=== PATIENT | male | born 1975 | race Caucasian/White ===

== ENCOUNTER 2017-12-18 16:08 | Inpatient (IN) | payer BC ==
[~2017-12-18] VITALS: Ht 167.6 cm; Wt 81.0 kg
[2017-12-18] MEDS ORDERED: IOPAMIDOL-370 75 ML VIAL IV ONE (16:34)
[2017-12-18] MEDS ORDERED: VANCOMYCIN 1GM+NS 250ML 250 ML IV ONE (16:41)
[2017-12-18] MEDS ORDERED: MEROPENEM 1 GM VIAL ONE (16:41)
[2017-12-18] MEDS ORDERED: SODIUM CHLORIDE 0.9% 1000ML 3,000 ML IV ONE (16:41)
[2017-12-18 16:44] LABS: HEMATOCRIT 42.7 % (42-54); MEAN CORPUSCULAR HEMOGLOBIN 29.3 pg (27.0-33.0); MEAN CORPUSCULAR HGB CONC 34.6 g/dL (32.0-36.0); MEAN CORPUSCULAR VOLUME 84.8 fL (79-99); PLATELET COUNT (AUTO) 265 K/uL (130-400); RED BLOOD CELL COUNT(AUTO) 5.04 MIL/uL (4.50-6.20); RED CELL DISTRIBUTION WIDTH 13.7 % (11.0-15.5)
[2017-12-18 16:58] LABS: APPEARANCE,URINE Clear (CLEAR); BILIRUBIN,URINE Negative (NEGATIVE); COLOR,URINE Dark Yellow (YELLOW); GLUCOSE, URINE (UA) Negative (NEGATIVE); KETONES,URINE Negative (NEGATIVE); LEUKOCYTE ESTERASE ,URINE Negative (NEGATIVE); NITRATE,URINE Negative (NEGATIVE); OCCULT BLOOD,URINE Negative (NEGATIVE); PH,URINE 5.5 (5.0-8.0); PROTEIN,URINE Trace (NEGATIVE)
[2017-12-18 16:58] LABS: CARBON DIOXIDE 27 mmol/L (21-32); CHLORIDE 100 mmol/L (101-111); CREATININE 1.1 mg/dL (0.5-1.5); GLOMERULAR FILTR. RATE CALC 77 mL/min (>60); GLUCOSE,RANDOM 107 mg/dL (70-105); POTASSIUM 3.7 mmol/L (3.5-5.1); SODIUM SERUM 137 mmol/L (136-145); UREA NITROGEN, BLOOD 10 mg/dL (7-18)
[2017-12-18 17:02] LABS: WHITE BLOOD COUNT (AUTO) 32.1 K/uL (4.8-10.8)
[2017-12-18] MEDS ORDERED: ONDANSETRON HCL 4 MG/2 ML VIAL ONE (17:05)
[2017-12-18] MEDS ORDERED: MORPHINE SULFATE 4 MG/1ML SYG ONE ×2 (17:05→21:12)
[2017-12-18] MEDS ORDERED: ACETAMINOPHEN 325 MG TAB ONE (17:05)
[2017-12-18 17:11] LABS: ALANINE AMINOTRANSFERASE 44 U/L (12-78); ALBUMIN 3.4 g/dL (3.5-5.0); ASPARTATE AMINOTRANSFERASE 17 U/L (10-37); BILIRUBIN,TOTAL 0.8 mg/dL (0.2-1.0); CREATINE KINASE MB < 0.5 ng/mL (0.5-3.6); TOTAL PROTEIN, SERUM 7.5 g/dL (6.0-8.3)
[2017-12-18 17:50] LABS: BACTERIA,URINE None Seen /HPF (None Seen); MUCUS,URINE Moderate LPF (None Seen); RBC,URINE None Seen /HPF (0-1); SQUAMOUS EPITHELIAL CELL,UR 0-2 /LPF (0-2); WBC,URINE None Seen /HPF (0-1)
[2017-12-18 18:33] LABS: BAND NEUTROPHILS % (MANUAL) 3 % (0-2); LYMPHOCYTES % (MANUAL) 8 % (22-44); MAN.DIFF COMMENT-IMPRESSION MANUAL DIFFERENTIAL; MONOCYTES % (MANUAL) 6 % (2-9); REACTIVE LYMPHOCYTES 5 % (0-0); SEGMENTED NEUTROPHILS % 78 % (40-70)
[2017-12-18 18:36] LABS: PLATELET MORPHOLOGY COMMENT LARGE PLTS PRESENT
[2017-12-18] MEDS ORDERED: ONDANSETRON HCL 4 MG/2 ML VIAL IV PRN (23:45)
[2017-12-18] MEDS ORDERED: ACETAMINOPHEN 325 MG TAB PO PRN ×2 (23:45)
[2017-12-18] MEDS ORDERED: MEROPENEM 500MG+NS 50ML 50 ML IV SCH (23:45)
[2017-12-19] MEDS ORDERED: SODIUM CHLORIDE 0.9% 1000ML 1,000 ML IV ONE (01:38)
[2017-12-19] MEDS ORDERED: ACETAMINOPHEN 325 MG TAB ONE ×2 (01:56→04:41)
[2017-12-19] MEDS ORDERED: MEROPENEM 500 MG VIAL ONE (02:55)
[2017-12-19] MEDS ORDERED: VANCOMYCIN 1GM+NS 250ML 250 ML IV ONE (04:34)
[2017-12-19 05:56] LABS: BASOPHILS % (AUTO) 0.3 % (0.0-5.0); EOSINOPHILS % (AUTO) 0.1 % (0.0-8.0); MEAN CORPUSCULAR HEMOGLOBIN 29.8 pg (27.0-33.0); MEAN CORPUSCULAR HGB CONC 34.4 g/dL (32.0-36.0); MEAN CORPUSCULAR VOLUME 86.5 fL (79-99); MONOCYTES % (AUTO) 11.2 % (3.0-13.0); NEUTROPHILS % (AUTO) 81.4 % (40.0-77.0); PLATELET COUNT (AUTO) 231 K/uL (130-400); RED BLOOD CELL COUNT(AUTO) 4.51 MIL/uL (4.50-6.20); RED CELL DISTRIBUTION WIDTH 13.6 % (11.0-15.5); WHITE BLOOD COUNT (AUTO) 27.8 K/uL (4.8-10.8)
[2017-12-19 06:08] LABS: ALBUMIN 2.7 g/dL (3.5-5.0); BILIRUBIN,TOTAL 1.7 mg/dL (0.2-1.0); CREATININE 0.9 mg/dL (0.5-1.5); MAGNESIUM 1.6 mg/dL (1.80-2.40); PHOSPHORUS 2.7 mg/dL (2.5-4.9); POTASSIUM 3.9 mmol/L (3.5-5.1); TOTAL PROTEIN, SERUM 6.1 g/dL (6.0-8.3)
[2017-12-19] MEDS: MEROPENEM 500 MG VIAL IVP SCH ×3 (06:30→21:17)
[2017-12-19] MEDS: VANCOMYCIN 1GM+NS 250ML 250 ML IV SCH ×2 (09:00→21:17)
[2017-12-19 09:34] VITALS: BP 115/83
[2017-12-19] MEDS: SODIUM CHLORIDE 0.9% 1000ML 1,000 ML IV SCH ×3 (09:39→21:17)
[2017-12-19] MEDS: ENOXAPARIN SODIUM 40 MG/0.4 ML SYRINGE SQ SCH (10:52)
[2017-12-19] MEDS: PANTOPRAZOLE SODIUM 40 MG TABLET.DR PO SCH (10:53)
[2017-12-19 11:36] VITALS: BP 144/66
[2017-12-19] MEDS: TRAMADOL HCL 50 MG TABLET PO PRN ×2 (15:49→21:28)
[2017-12-19 16:00] VITALS: BP 123/55
[2017-12-19] MEDS ORDERED: ONDANSETRON HCL 4 MG/2 ML VIAL IVP PRN (17:00)
[2017-12-19 20:00] VITALS: BP 115/63
[2017-12-19 23:44] VITALS: BP 120/77
[2017-12-20 04:00] VITALS: BP 131/66
[2017-12-20] MEDS: MEROPENEM 500 MG VIAL IVP SCH ×3 (05:37→20:36)
[2017-12-20] MEDS: SODIUM CHLORIDE 0.9% 1000ML 1,000 ML IV SCH ×2 (05:37→15:39)
[2017-12-20 07:00] VITALS: BP 123/63
[2017-12-20] MEDS: VANCOMYCIN 1GM+NS 250ML 250 ML IV SCH ×2 (10:17→20:36)
[2017-12-20] MEDS: PANTOPRAZOLE SODIUM 40 MG TABLET.DR PO SCH (10:18)
[2017-12-20] MEDS: ENOXAPARIN SODIUM 40 MG/0.4 ML SYRINGE SQ SCH (10:18)
[2017-12-20] MEDS: TRAMADOL HCL 50 MG TABLET PO PRN (10:18)
[2017-12-20 11:00] VITALS: BP 126/69
[2017-12-20] MEDS ORDERED: KETOROLAC TROMETHAMINE 30MG/ML IV ONE (15:00)
[2017-12-20] MEDS ORDERED: KETOROLAC TROMETHAMINE 15MG/ML ONE (15:04)
[2017-12-20] MEDS ORDERED: LIDOCAINE HCL 1% 20 ML VIAL INJ SCH (15:15)
[2017-12-20 16:00] VITALS: BP 139/70
[2017-12-20 20:00] VITALS: BP 150/83
[2017-12-20] MEDS: MORPHINE SULFATE 2 MG/ML 1ML SYG IVP PRN (20:41)
[2017-12-21] VITALS: BP 130/65
[2017-12-21] MEDS: MORPHINE SULFATE 2 MG/ML 1ML SYG IVP PRN ×3 (03:53→15:55)
[2017-12-21 04:00] VITALS: BP 131/76
[2017-12-21 05:32] LABS: MEAN CORPUSCULAR HEMOGLOBIN 30.1 pg (27.0-33.0); MEAN CORPUSCULAR HGB CONC 35.1 g/dL (32.0-36.0); MEAN CORPUSCULAR VOLUME 85.6 fL (79-99); PLATELET COUNT (AUTO) 247 K/uL (130-400); RED CELL DISTRIBUTION WIDTH 13.5 % (11.0-15.5); WHITE BLOOD COUNT (AUTO) 19.1 K/uL (4.8-10.8)
[2017-12-21 05:45] LABS: ALBUMIN 2.5 g/dL (3.5-5.0); BILIRUBIN,DIRECT 0.1 mg/dL (0.0-0.3); BILIRUBIN,TOTAL 0.6 mg/dL (0.2-1.0); MAGNESIUM 1.8 mg/dL (1.80-2.40); POTASSIUM 3.3 mmol/L (3.5-5.1); TOTAL PROTEIN, SERUM 6.2 g/dL (6.0-8.3)
[2017-12-21 06:16] LABS: BAND NEUTROPHILS % (MANUAL) 6 % (0-2); LYMPHOCYTES % (MANUAL) 11 % (22-44); MAN.DIFF COMMENT-IMPRESSION MANUAL DIFFERENTIAL; MONOCYTES % (MANUAL) 8 % (2-9); SEGMENTED NEUTROPHILS % 75 % (40-70)
[2017-12-21 06:17] LABS: PLATELET MORPHOLOGY COMMENT ADEQUATE
[2017-12-21] MEDS: MEROPENEM 500 MG VIAL IVP SCH ×3 (06:32→21:48)
[2017-12-21 08:00] VITALS: BP 135/71
[2017-12-21] MEDS: ENOXAPARIN SODIUM 40 MG/0.4 ML SYRINGE SQ SCH (10:04)
[2017-12-21] MEDS: VANCOMYCIN 1GM+NS 250ML 250 ML IV SCH ×2 (10:09→21:05)
[2017-12-21] MEDS: PANTOPRAZOLE SODIUM 40 MG TABLET.DR PO SCH (10:09)
[2017-12-21] MEDS: TRAMADOL HCL 50 MG TABLET PO PRN (10:14)
[2017-12-21] MEDS: SODIUM CHLORIDE 0.9% 1000ML 1,000 ML IV SCH ×3 (10:30→21:39)
[2017-12-21] MEDS ORDERED: HYDROCODONE/ACETAMINOPHEN 5/325 MG TAB PO PRN (11:15)
[2017-12-21 12:00] VITALS: BP 120/73
[2017-12-21] MEDS ORDERED: COMPOUND IV REFRIGERATED 1 EACH IVSOLN MISC PRN (13:00)
[2017-12-21] MEDS: VANCOMYCIN 1.5 GM in SODIUM CHLORIDE 0.9% 250 ML IV SCH ×2 (13:28→21:37)
[2017-12-21 16:00] VITALS: BP 134/6
[2017-12-21] MEDS ORDERED: LIDOCAINE HCL-MPF 1% 2ML VIAL IVP PRN (16:30)
[2017-12-21] MEDS ORDERED: POTASSIUM CHLORIDE 10% ELIXIR 20 MEQ/15 ML UDCUP PO PRN (16:30)
[2017-12-21] MEDS ORDERED: POTASSIUM CHLORIDE 20MEQ/100ML 100 ML IV PRN (16:30)
[2017-12-21] MEDS: POTASSIUM CHLORIDE 20 MEQ ERTAB PO PRN (17:45)
[2017-12-21 20:00] VITALS: BP 147/70
[2017-12-21] MEDS ORDERED: SODIUM CHLORIDE 0.9% 250 ML IV ONE (20:45)
[2017-12-21] MEDS ORDERED: VANCOMYCIN HCL 1 GM VIAL IV ONE (20:45)
[2017-12-21] MEDS: KETOROLAC TROMETHAMINE 30MG/ML IM SCH (21:05)
[2017-12-22] VITALS (25 sets, daily range): BP systolic 82–164; BP diastolic 37–89
[2017-12-22] MEDS: VANCOMYCIN 1.5 GM in SODIUM CHLORIDE 0.9% 250 ML IV SCH ×3 (05:39→22:00)
[2017-12-22] MEDS: MEROPENEM 500 MG VIAL IVP SCH ×3 (05:39→22:10)
[2017-12-22] MEDS: KETOROLAC TROMETHAMINE 30MG/ML IM SCH ×4 (05:41→20:51)
[2017-12-22] MEDS: SODIUM CHLORIDE 0.9% 1000ML 1,000 ML IV SCH ×3 (07:39→20:51)
[2017-12-22] MEDS: PANTOPRAZOLE SODIUM 40 MG TABLET.DR PO SCH (09:00)
[2017-12-22] MEDS: ENOXAPARIN SODIUM 40 MG/0.4 ML SYRINGE SQ SCH (09:57)
[2017-12-22] MEDS ORDERED: PROPOFOL 10 MG/ML 20ML VIAL IV ONE (10:43)
[2017-12-22] MEDS ORDERED: LIDOCAINE PF 2% 5ML ABBOJECT ONE (10:43)
[2017-12-22] MEDS ORDERED: MIDAZOLAM HCL 1 MG/ML 2ML VIAL ONE (10:43)
[2017-12-22] MEDS ORDERED: FENTANYL CITRATE PF 50 MCG/1 ML 2ML VIAL ONE (10:43)
[2017-12-22] MEDS ORDERED: BACITRACIN 50,000 UNIT VIAL ONE (10:56)
[2017-12-22] MEDS: POTASSIUM CHLORIDE 20 MEQ ERTAB PO PRN (12:33)
[2017-12-23] MEDS: KETOROLAC TROMETHAMINE 30MG/ML IM SCH ×3 (02:22→14:00)
[2017-12-23 04:00] VITALS: BP 124/64
[2017-12-23 05:46] LABS: HEMATOCRIT 36.6 % (42-54); MEAN CORPUSCULAR HEMOGLOBIN 29.8 pg (27.0-33.0); MEAN CORPUSCULAR HGB CONC 34.9 g/dL (32.0-36.0); MEAN CORPUSCULAR VOLUME 85.5 fL (79-99); PLATELET COUNT (AUTO) 294 K/uL (130-400); RED BLOOD CELL COUNT(AUTO) 4.28 MIL/uL (4.50-6.20); RED CELL DISTRIBUTION WIDTH 13.8 % (11.0-15.5); WHITE BLOOD COUNT (AUTO) 11.7 K/uL (4.8-10.8)
[2017-12-23 05:51] LABS: ALBUMIN 2.4 g/dL (3.5-5.0); BILIRUBIN,TOTAL 0.3 mg/dL (0.2-1.0); CREATININE 0.9 mg/dL (0.5-1.5); MAGNESIUM 1.8 mg/dL (1.80-2.40); POTASSIUM 4.5 mmol/L (3.5-5.1); TOTAL PROTEIN, SERUM 6.1 g/dL (6.0-8.3)
[2017-12-23] MEDS: MEROPENEM 500 MG VIAL IVP SCH (06:23)
[2017-12-23 07:00] VITALS: BP 151/94
[2017-12-23] MEDS: VANCOMYCIN 1.75 GM in SODIUM CHLORIDE 0.9% 250 ML IV SCH ×3 (07:32→21:36)
[2017-12-23] MEDS: PANTOPRAZOLE SODIUM 40 MG TABLET.DR PO SCH (09:52)
[2017-12-23] MEDS: MORPHINE SULFATE 2 MG/ML 1ML SYG IVP PRN ×2 (09:53→21:37)
[2017-12-23] MEDS: ENOXAPARIN SODIUM 40 MG/0.4 ML SYRINGE SQ SCH (09:53)
[2017-12-23 11:00] VITALS: BP 154/86
[2017-12-23 16:00] VITALS: BP_SYST 154; BP_SYST 168; BP_DIAS 85; BP_DIAS 93
[2017-12-23 19:49] VITALS: BP 148/76
[2017-12-23] MEDS: SODIUM CHLORIDE 0.9% 1000ML 1,000 ML IV SCH (21:33)
[2017-12-23 23:59] VITALS: BP 140/79
[2017-12-24 04:00] VITALS: BP 142/77
[2017-12-24 05:48] LABS: BASOPHILS % (AUTO) 1.1 % (0.0-5.0); HEMATOCRIT 35.7 % (42-54); LYMPHOCYTES % (AUTO) 21.2 % (21.0-51.0); MEAN CORPUSCULAR HEMOGLOBIN 29.1 pg (27.0-33.0); MEAN CORPUSCULAR HGB CONC 34.1 g/dL (32.0-36.0); MEAN CORPUSCULAR VOLUME 85.3 fL (79-99); MONOCYTES % (AUTO) 9.2 % (3.0-13.0); NEUTROPHILS % (AUTO) 66.5 % (40.0-77.0); PLATELET COUNT (AUTO) 305 K/uL (130-400); RED BLOOD CELL COUNT(AUTO) 4.19 MIL/uL (4.50-6.20); RED CELL DISTRIBUTION WIDTH 13.4 % (11.0-15.5); WHITE BLOOD COUNT (AUTO) 12.4 K/uL (4.8-10.8)
[2017-12-24 06:12] LABS: CREATININE 0.9 mg/dL (0.5-1.5); POTASSIUM 4.2 mmol/L (3.5-5.1)
[2017-12-24] MEDS: VANCOMYCIN 1.75 GM in SODIUM CHLORIDE 0.9% 250 ML IV SCH (06:21)
[2017-12-24 07:45] VITALS: BP 136/80
[2017-12-24] MEDS: ENOXAPARIN SODIUM 40 MG/0.4 ML SYRINGE SQ SCH (09:24)
[2017-12-24] MEDS: PANTOPRAZOLE SODIUM 40 MG TABLET.DR PO SCH (09:24)
[2017-12-24] MEDS: SODIUM CHLORIDE 0.9% 1000ML 1,000 ML IV SCH (10:20)
[2017-12-24 11:20] VITALS: BP 142/84
== END 2017-12-24 12:40 | disposition home health service (06) | DRG 854 ==
LOC: EDH 16:08 → EDHIP 22:15 → 4CH 12-19 09:18
PROVIDERS: ADMIT Family Medicine; ATTEND Family Medicine
PROC: 0J990ZZ Drainage of Buttock Subcutaneous Tissue and Fascia, Open Approach (ICD-10-PCS; principal; 2017-12-22 10:46)
DX: A41.02 Sepsis due to Methicillin resistant Staphylococcus aureus (principal); L03.315 Cellulitis of perineum; E83.42 Hypomagnesemia; L02.612 Cutaneous abscess of left foot; L03.317 Cellulitis of buttock; L02.31 Cutaneous abscess of buttock; A41.9 Sepsis, unspecified organism; L02.32 Furuncle of buttock; Z72.0 Tobacco use; Z88.8 Allergy status to other drugs, medicaments and biological substances
CPT/HCPCS: 36415; 71046; 74177; 80048; 80053; 80076; 80202; 81001; 82553; 83605; 83690; 83735; 84100; 84484; 85007; 85025; 85027; 85060; 87040; 87070; 87076; 87804; 88313; 93005; A4218; A4606; J1650; J1885; J2001; J2185; J2250; J2270; J2405; J2704; J3010; J3370; J7030; Q9967